=== PATIENT | male | born 1955 | race Caucasian/White ===

== ENCOUNTER 2016-07-15 13:29 | Inpatient (IN) | payer OTHER ==
[~2016-07-15] VITALS: Ht 182.9 cm; Wt 111.0 kg
[~2016-07-15 13:29] MED LIST: ADVIL,NUPRIN,M200 MG PO; ALPRAZOLAM0.5 MG PO; AMBIEN10 MG PO; AMBIEN5 MG PO; AMLODIPINE BESY10 MG PO; ANTIVERT25 MG PO; APRESOLINE100 MG PO; APRESOLINE50 MG PO; AQUAPHOR W-NAT50 GM TP; ASPIR-LOW81 MG PO; ATHLETIC FOOT C30 GM TP; Ambien PO; BACTROBAN CREAM15 GM TP; BAYER CHEWABLE81 MG PO; BISACODYL5 MG PO; Buspar PO; CATAPRES0.2 MG PO; CATAPRES0.3 MG PO; CENTRUM COMPLE1 EACH PO; CIPRO500 MG PO; CLEOCIN300 MG PO; CLINDAMYCIN HC150 MG PO; CLONAZEPAM1 MG PO; CLONIDINE HCL0.2 MG PO; CLONIDINE HCL0.3 MG PO; DISULFIRAM250 MG PO; Ecotrin PO; GABAPENTIN300 MG PO; GABAPENTIN600 MG PO; KLONOPIN1 MG PO; LIPITOR10 MG PO; LOPRESSOR100 M1 PO; Lopressor PO; METOPROLOL SUC100 MG PO; METOPROLOL TAR100 MG PO; MIRTAZAPINE15 MG PO; MIRTAZAPINE30 MG PO; MORPHINE SULFAT15 M1 PO; MOTRIN600 MG PO; NAPROSYN500 MG PO; NEURONTIN300 MG PO; NIFEDICAL XL60 MG PO; NORVASC10 MG PO; NORVASC5 MG PO; OXYCODONE HCL10 MG PO; OXYCODONE HCL5 M1 PO; OXYCODONE HCL5 MG PO; POLYETHYLENE GL17 GM PO; PRAVACHOL40 MG PO; QUETIAPINE FUM300 MG PO; ROXICODONE5 MG PO; SEROQUEL100 MG PO; SEROQUEL200 MG PO; SEROQUEL300 MG PO; SEROQUEL400 MG PO; SERTRALINE HCL100 MG PO; TOPROL XL100 MG PO; TOPROL XL6.25 MG PO; TRAZODONE HCL50 MG PO; ULTRAM50 MG PO; XANAX0.5 MG PO; XANAX1 MG PO; Xanax PO; ZOLOFT100 M1 PO; ZOLOFT100 MG PO; ZOLOFT50 MG PO; ZOLPIDEM TARTRA10 MG PO; ZOLPIDEM TARTRAT5 MG PO; metoprolol PO; oxyCODONE PO
[2016-07-15 14:18] LABS: HEMATOCRIT 40.7 % (38.0-50.0); MCH 31.4 PG (29.0-34.0); MCHC 34.2 G/DL (30.0-36.0); MCV 91.9 FL (86-99); MEAN PLAT.VOLUME 9.7 uM^3 (9.0-12.4); PLATELET COUNT 328 K/uL (156-360); RBC DIS.WIDTH-CV 13.2 % (11.8-14.6); RBC DIS.WIDTH-SD 44.7 % (39-53); RED BLOOD COUNT 4.43 M/uL (4.00-5.50); WHITE BLOOD COUNT 6.9 K/uL (4.1-10.2)
[2016-07-15 14:26] LABS: CHLORIDE 103 mEq/L (99-109); POTASSIUM 3.5 mEq/L (3.7-5.4)
[2016-07-15 14:27] LABS: SODIUM 138 mEq/L (136-147)
[2016-07-15 14:28] LABS: GLUCOSE 127 mg/dL (70-99)
[2016-07-15 14:30] LABS: ANION GAP 14 MEQ/L (2-14)
[2016-07-15 14:31] LABS: SERUM ETHYL ALCOHOL < 10 mg/dL
[2016-07-15 14:32] LABS: GFR ESTIMATE (CALCULATED) > 59 mL/min/
[2016-07-15 14:34] LABS: UREA NITROGEN (BUN) 8 mg/dL (9-23)
[2016-07-15 14:35] LABS: SALICYLATE < 5.0 MG/DL (15-30)
[2016-07-15 16:12] LABS: AMPHETAMINE NEGATIVE (500 ng/mL); BARBITURATES NEGATIVE (200 ng/mL); BENZODIAZEPINES PRESUMPTIVE POSITIVE (150 ng/mL); COCAINE NEGATIVE (150 ng/mL); INTERNAL CONTROLS VALID? YES; METHADONE NEGATIVE (200 ng/mL); METHAMPHETAMINE NEGATIVE (500 ng/mL); OPIATES (MORPHINE) NEGATIVE (100 ng/mL); OXYCODONE PRESUMPTIVE POSITIVE (100 ng/mL); PHENCYCLIDINE NEGATIVE (25 ng/mL); PROPOXYPHENE NEGATIVE (300 ng/mL); THC CANNABINOIDS NEGATIVE (50 ng/mL); TRICYCLIC ANTIDEPRESSANTS NEGATIVE (300 ng/mL)
[2016-07-15 16:13] LABS: ADD MEDTOX COMMENT Y
[2016-07-15 16:51] LABS: BENZODIAZEPINES, URINE SCREEN POSITIVE (200 ng/mL)
[2016-07-15] MEDS ORDERED: TAMSULOSIN HCL0.4 MG PO (17:05)
[2016-07-15 20:27] VITALS: BP 194/97
[2016-07-15 20:33] VITALS: BP 194/97
[2016-07-16 08:13] VITALS: BP 120/61
[2016-07-16 16:21] VITALS: BP 112/61
[2016-07-17 07:40] VITALS: BP 107/62
[2016-07-17 15:36] VITALS: BP 101/58
[2016-07-18 08:12] VITALS: BP 122/66
[2016-07-18 08:14] VITALS: BP 122/66
[2016-07-18 15:44] VITALS: BP 115/65
[2016-07-19 07:54] VITALS: BP 139/76
[2016-07-19] MEDS ORDERED: XANAX0.5 MG PO (09:36)
== END 2016-07-19 11:40 | disposition home or self-care (01) | DRG 885 ==
LOC: EME → EDBD 13:29 → EDOF 16:19 → 1WEST 16:19
PROVIDERS: Emergency Medicine
DX: F33.2 Major depressive disorder, recurrent severe without psychotic features (principal); I10 Essential (primary) hypertension; R45.851 Suicidal ideations; F41.9 Anxiety disorder, unspecified; G89.29 Other chronic pain; M54.9 Dorsalgia, unspecified; N40.0 Benign prostatic hyperplasia without lower urinary tract symptoms; F10.21 Alcohol dependence, in remission
CPT/HCPCS: 80048; 84999; 85027; 90839; 97150 GO; 97165 GO; 99281; 99285; G0480

== ENCOUNTER 2016-11-05 07:39 | Emergency (ER) | payer OTHER ==
[~2016-11-05] VITALS: Ht 182.9 cm; Wt 110.4 kg
[~2016-11-05 07:39] MED LIST changes: +TAMSULOSIN HCL0.4 MG PO
[2016-11-05 08:15] LABS: HEMATOCRIT 38.6 % (38.0-50.0); MCH 32.2 PG (29.0-34.0); MCHC 35.2 G/DL (30.0-36.0); MCV 91.3 FL (86-99); MEAN PLAT.VOLUME 10.4 uM^3 (9.0-12.4); PLATELET COUNT 288 K/uL (156-360); RBC DIS.WIDTH-SD 43.2 % (39-53); RED BLOOD COUNT 4.23 M/uL (4.00-5.50); WHITE BLOOD COUNT 5.7 K/uL (4.1-10.2)
[2016-11-05 08:31] LABS: CHLORIDE 103 mEq/L (99-109); POTASSIUM 3.1 mEq/L (3.7-5.4); SODIUM 139 mEq/L (136-147)
[2016-11-05 08:34] LABS: GLUCOSE 117 mg/dL (70-99)
[2016-11-05 08:35] LABS: ANION GAP 11 MEQ/L (2-14); TOTAL BILIRUBIN 1.1 mg/dL (0.0-1.0)
[2016-11-05 08:36] LABS: SERUM ETHYL ALCOHOL < 10 mg/dL
[2016-11-05 08:37] LABS: ALKALINE PHOSPHATASE 120 IU/L (3-129); GFR ESTIMATE (CALCULATED) > 59 mL/min/
[2016-11-05 08:38] LABS: UREA NITROGEN (BUN) 8 mg/dL (9-23)
[2016-11-05 08:40] LABS: TROP-I INTERPRETATION NEGATIVE; TROPONIN-I 0.01 ng/mL (0.0-0.30)
[2016-11-05 10:14] LABS: ADD MIUA? NO; BILIRUBIN NEGATIVE; BLOOD NEGATIVE; COLOR YELLOW ((YELLOW)); GLUCOSE (STRIP) NEGATIVE; KETONES NEGATIVE; LEUKOCYTES NEGATIVE; NITRITE NEGATIVE; PROTEIN (STRIP) NEGATIVE; SPECIFIC GRAVITY 1.011 (1.000-1.030); UCUL ADDED? NO
[2016-11-05 10:23] LABS: AMPHETAMINE NEGATIVE (500 ng/mL); BARBITURATES NEGATIVE (200 ng/mL); BENZODIAZEPINES NEGATIVE (150 ng/mL); COCAINE NEGATIVE (150 ng/mL); INTERNAL CONTROLS VALID? YES; METHADONE NEGATIVE (200 ng/mL); METHAMPHETAMINE NEGATIVE (500 ng/mL); OPIATES (MORPHINE) NEGATIVE (100 ng/mL); OXYCODONE PRESUMPTIVE POSITIVE (100 ng/mL); PHENCYCLIDINE NEGATIVE (25 ng/mL); PROPOXYPHENE NEGATIVE (300 ng/mL); THC CANNABINOIDS NEGATIVE (50 ng/mL); TRICYCLIC ANTIDEPRESSANTS PRESUMPTIVE POSITIVE (300 ng/mL)
[2016-11-05 13:49] VITALS: BP 148/82
== END 2016-11-05 14:58 ==
LOC: EME 07:39
PROVIDERS: Emergency Medicine
DX: R45.851 Suicidal ideations (principal); F33.2 Major depressive disorder, recurrent severe without psychotic features; R07.89 Other chest pain; F41.9 Anxiety disorder, unspecified; I10 Essential (primary) hypertension; E78.5 Hyperlipidemia, unspecified; Z79.82 Long term (current) use of aspirin
CPT/HCPCS: 80053; 81003; 84484; 85027; 90837; 93005; 99281; 99285; G0480

== ENCOUNTER 2017-06-24 22:56 | Inpatient (IN) | payer OTHER ==
[~2017-06-24] VITALS: Ht 182.9 cm; Wt 111.5 kg
[~2017-06-24 22:56] MED LIST changes: -OXYCODONE HCL10 MG PO
[2017-06-24 23:34] LABS: BASOPHIL (%) 0 % (0-1); EOSINOPHIL (%) 0 % (0-5); HEMATOCRIT 34.8 % (38.0-50.0); HEMOGLOBIN 12.4 G/DL (12.5-16.6); IMMATURE GRANULOCYTE (%) 0.2 % (0.0-0.7); LYMPHOCYTE (%) 13.1 % (15-42); LYMPHOCYTE COUNT 0.8 K/uL (1.0-2.8); MCH 32.5 PG (29.0-34.0); MCHC 35.6 G/DL (30.0-36.0); MCV 91.1 FL (86-99); MONOCYTE (%) 9.3 % (3-12); MONOCYTE COUNT 0.6 K/uL (0-0.8); NEUTROPHIL (%) 77.4 % (45-76); NEUTROPHIL COUNT 4.7 K/uL (1.8-6.4); PLATELET COUNT 216 K/uL (156-360); RBC DIS.WIDTH-CV 13.3 % (11.8-14.6); RBC DIS.WIDTH-SD 44.2 % (39-53); RED BLOOD COUNT 3.82 M/uL (4.00-5.50)
[2017-06-24 23:45] LABS: ALBUMIN 4.1 g/dL (3.2-4.8); CHLORIDE 102 mEq/L (99-109); POTASSIUM 4.2 mEq/L (3.7-5.4); SODIUM 136 mEq/L (136-147)
[2017-06-24 23:48] LABS: GLUCOSE 106 mg/dL (70-99)
[2017-06-24 23:50] LABS: TOTAL BILIRUBIN 1.9 mg/dL (0.0-1.0)
[2017-06-24 23:51] LABS: SERUM ETHYL ALCOHOL < 10 mg/dL
[2017-06-24 23:52] LABS: ALKALINE PHOSPHATASE 120 IU/L (3-129); CREATININE 1.2 mg/dL (0.6-1.3); GFR ESTIMATE (CALCULATED) > 59 mL/min/ (58.99-99999)
[2017-06-24 23:53] LABS: AST (GOT) 75 IU/L (2-34); UREA NITROGEN (BUN) 12 mg/dL (9-23)
[2017-06-24 23:55] LABS: ACETAMINOPHEN (TYLENOL) < 10 mcg/mL (10-30); ALT (GPT) 21 IU/L (3-49); SALICYLATE < 5.0 MG/DL (15-30)
[2017-06-24 23:56] LABS: TOTAL CK 2751 IU/L (1-294)
[2017-06-24 23:57] LABS: CREATINE KINASE 2751 IU/L (1-294)
[2017-06-25 00:02] LABS: CK-MB 17.2 ng/mL (0.0-4.9); CKMB RELATIVE INDEX 0.6 (0.0-3.9)
[2017-06-25 00:03] LABS: TROP-I INTERPRETATION NEGATIVE; TROPONIN-I 0.03 ng/mL (0.0-0.30)
[2017-06-25] MEDS ORDERED: CLONAZEPAM1 MG PO (00:33)
[2017-06-25 06:17] LABS: BASOPHIL (%) 0.2 % (0-1); EOSINOPHIL (%) 0.2 % (0-5); HEMOGLOBIN 13.2 G/DL (12.5-16.6); IMMATURE GRANULOCYTE (%) 0.4 % (0.0-0.7); LYMPHOCYTE (%) 33.1 % (15-42); LYMPHOCYTE COUNT 1.5 K/uL (1.0-2.8); MCH 32.9 PG (29.0-34.0); MCHC 35.7 G/DL (30.0-36.0); MCV 92.3 FL (86-99); MONOCYTE (%) 13.5 % (3-12); MONOCYTE COUNT 0.6 K/uL (0-0.8); NEUTROPHIL (%) 52.6 % (45-76); NEUTROPHIL COUNT 2.4 K/uL (1.8-6.4); RBC DIS.WIDTH-CV 13.4 % (11.8-14.6); RBC DIS.WIDTH-SD 45.8 % (39-53); RED BLOOD COUNT 4.01 M/uL (4.00-5.50); WHITE BLOOD COUNT 4.7 K/uL (4.1-10.2)
[2017-06-25 06:53] LABS: CHLORIDE 106 MEQ/L (99-109); GFR ESTIMATE (CALCULATED) > 59 mL/min/ (58.99-99999); GLUCOSE 86 mg/dL (70-99); POTASSIUM 4.8 MEQ/L (3.7-5.4); SODIUM 137 MEQ/L (136-147); UREA NITROGEN (BUN) 11 mg/dL (9-23)
[2017-06-25 06:54] LABS: APPEARANCE CLEAR ((CLEAR)); BILIRUBIN NEGATIVE; BLOOD NEGATIVE; COLOR YELLOW ((YELLOW)); GLUCOSE (STRIP) NEGATIVE; KETONES 20; LEUKOCYTES NEGATIVE; NITRITE NEGATIVE; PROTEIN (STRIP) NEGATIVE; SPECIFIC GRAVITY 1.013 (1.000-1.030); UCUL ADDED? NO; UROBILINOGEN 0.2 MG/DL (0.2-1.0)
[2017-06-25 06:58] LABS: CREATINE KINASE 2417 IU/L (1-294)
[2017-06-25 07:00] LABS: PLAT.SUFFICIENCY ADEQUATE; PLATELET COUNT 164 K/uL (156-360)
[2017-06-25 07:02] LABS: AMPHETAMINE NEGATIVE (500 ng/mL); BENZODIAZEPINES NEGATIVE (150 ng/mL); COCAINE NEGATIVE (150 ng/mL); METHADONE NEGATIVE (200 ng/mL); METHAMPHETAMINE NEGATIVE (500 ng/mL); OPIATES (MORPHINE) PRESUMPTIVE POSITIVE (100 ng/mL); PHENCYCLIDINE NEGATIVE (25 ng/mL); THC CANNABINOIDS NEGATIVE (50 ng/mL); TRICYCLIC ANTIDEPRESSANTS PRESUMPTIVE POSITIVE (300 ng/mL)
[2017-06-25 07:03] LABS: BARBITURATES NEGATIVE (200 ng/mL); BUPRENORPHINE NEGATIVE (10 ng/mL); OXYCODONE PRESUMPTIVE POSITIVE (100 ng/mL); PROPOXYPHENE NEGATIVE (300 ng/mL)
[2017-06-25 08:36] LABS: THYROTROPIN (TSH) 0.64 MIU/L (0.4-5.5)
[2017-06-25 08:46] LABS: FOLIC ACID (FOLATE) 10.1 NG/ML (5.0-22.0)
[2017-06-25 13:00] VITALS: BP 158/78
[2017-06-25 16:31] VITALS: BP 148/74
[2017-06-25 20:52] VITALS: BP 153/80
[2017-06-25 23:33] VITALS: BP 147/78
[2017-06-26 03:34] VITALS: BP 152/79
[2017-06-26 06:08] LABS: HEMATOCRIT 38.3 % (38.0-50.0); HEMOGLOBIN 13.2 G/DL (12.5-16.6); MCH 32.4 PG (29.0-34.0); MCHC 34.5 G/DL (30.0-36.0); MCV 93.9 FL (86-99); RBC DIS.WIDTH-CV 13.6 % (11.8-14.6); RBC DIS.WIDTH-SD 46.8 % (39-53); RED BLOOD COUNT 4.08 M/uL (4.00-5.50); WHITE BLOOD COUNT 5.7 K/uL (4.1-10.2)
[2017-06-26 06:10] LABS: PLATELET COUNT 229 K/uL (156-360)
[2017-06-26 06:38] LABS: CHLORIDE 108 MEQ/L (99-109); CREATININE 0.9 MG/DL (0.6-1.3); GFR ESTIMATE (CALCULATED) > 59 mL/min/ (58.99-99999); GLUCOSE 99 mg/dL (70-99); SODIUM 142 MEQ/L (136-147); UREA NITROGEN (BUN) 5 mg/dL (9-23)
[2017-06-26 06:41] LABS: POTASSIUM 3.4 MEQ/L (3.7-5.4)
[2017-06-26 08:00] VITALS: BP 163/79
[2017-06-26 08:39] LABS: CREATINE KINASE 1360 IU/L (1-294); MAGNESIUM 1.8 mg/dl (1.3-2.7)
[2017-06-26 11:51] VITALS: BP 157/81
[2017-06-26 15:37] VITALS: BP 135/73
[2017-06-26 19:30] VITALS: BP 129/79
[2017-06-27] VITALS: BP 106/56
[2017-06-27 03:36] VITALS: BP 130/66
[2017-06-27 06:10] LABS: HEMATOCRIT 33.8 % (38.0-50.0); HEMOGLOBIN 11.5 G/DL (12.5-16.6); MCH 31.6 PG (29.0-34.0); MCV 92.9 FL (86-99); PLATELET COUNT 228 K/uL (156-360); RBC DIS.WIDTH-CV 13.5 % (11.8-14.6); RBC DIS.WIDTH-SD 46.4 % (39-53); RED BLOOD COUNT 3.64 M/uL (4.00-5.50); WHITE BLOOD COUNT 5.3 K/uL (4.1-10.2)
[2017-06-27 07:11] VITALS: BP 132/76
[2017-06-27 07:20] LABS: CHLORIDE 111 MEQ/L (99-109); CREATINE KINASE 549 IU/L (1-294); CREATININE 0.9 MG/DL (0.6-1.3); GFR ESTIMATE (CALCULATED) > 59 mL/min/ (58.99-99999); GLUCOSE 96 mg/dL (70-99); POTASSIUM 3.5 MEQ/L (3.7-5.4); SODIUM 145 MEQ/L (136-147); TOTAL CK 549 IU/L (1-294); UREA NITROGEN (BUN) 5 mg/dL (9-23)
[2017-06-27 07:42] LABS: CK-MB 1.3 ng/mL (0.0-4.9); CKMB RELATIVE INDEX 0.2 (0.0-3.9)
[2017-06-27 12:21] VITALS: BP 130/71
[2017-06-27] MEDS ORDERED: AMBIEN10 MG PO (12:48)
== END 2017-06-27 14:18 | disposition home or self-care (01) | DRG 917 ==
LOC: EME → EDBD 22:56 → EDOF 06-25 02:40 → ENRESERV 06-25 02:42 → 5WEST 06-25 12:30 → ENPENDDIS 06-27 → 5WEST 06-27 14:18
PROVIDERS: Emergency Medicine; Internal Medicine; Physician Assistant
DX: T40.2X1A Poisoning by other opioids, accidental (unintentional), initial encounter (principal); G92 Toxic encephalopathy; T79.6XXA Traumatic ischemia of muscle, initial encounter; I10 Essential (primary) hypertension; E78.5 Hyperlipidemia, unspecified; N40.0 Benign prostatic hyperplasia without lower urinary tract symptoms; G89.29 Other chronic pain; F32.9 Major depressive disorder, single episode, unspecified; F41.9 Anxiety disorder, unspecified; I95.9 Hypotension, unspecified; E87.6 Hypokalemia
CPT/HCPCS: 70450; 70551; 71046; 71250; 80048; 80053; 81003; 82140; 82550; 82553; 82607; 82746; 83735; 84443; 84484; 84999; 85025; 85027; 93005; 99281; 99285; G0378; G0480; J1644; J2405; J7030

== ENCOUNTER 2017-08-13 16:35 | Emergency (ER) | payer OTHER ==
[~2017-08-13] VITALS: Ht 182.9 cm; Wt 107.5 kg
[2017-08-13] MEDS ORDERED: DOXYCYCLINE HY100 MG PO (19:42)
[2017-08-13] MEDS ORDERED: PERCOCET 10/1 TABLET PO (19:42)
[2017-08-13] MEDS ORDERED: TORADOL10 MG PO (19:42)
[2017-08-13 20:07] VITALS: BP 142/80
== END 2017-08-13 20:31 | disposition home or self-care (01) ==
LOC: EME 16:35
DX: S20.211A Contusion of right front wall of thorax, initial encounter (principal); R09.89 Other specified symptoms and signs involving the circulatory and respiratory systems; W18.2XXA Fall in (into) shower or empty bathtub, initial encounter; Y93.E1 Activity, personal bathing and showering; Z79.82 Long term (current) use of aspirin; E78.5 Hyperlipidemia, unspecified; Z86.73 Personal history of transient ischemic attack (TIA), and cerebral infarction without residual deficits; F41.9 Anxiety disorder, unspecified; Z88.0 Allergy status to penicillin; Z88.8 Allergy status to other drugs, medicaments and biological substances
CPT/HCPCS: 71046; 99281; 99284; J1885

== ENCOUNTER 2017-08-27 12:41 | Emergency (ER) | payer OTHER ==
[~2017-08-27] VITALS: Ht 182.9 cm; Wt 108.0 kg
[~2017-08-27 12:41] MED LIST changes: +DOXYCYCLINE HY100 MG PO; +PERCOCET 10/1 TABLET PO; +TORADOL10 MG PO
[2017-08-27] MEDS ORDERED: LIDODERM 5% P1 PATCH TD (15:00)
[2017-08-27] MEDS ORDERED: ULTRAM50 MG PO (15:00)
[2017-08-27 15:26] VITALS: BP 154/89
== END 2017-08-27 15:27 | disposition home or self-care (01) ==
LOC: EME 12:41
DX: S30.0XXA Contusion of lower back and pelvis, initial encounter (principal); R07.81 Pleurodynia; W18.2XXA Fall in (into) shower or empty bathtub, initial encounter; R06.02 Shortness of breath; I10 Essential (primary) hypertension; Z79.82 Long term (current) use of aspirin
CPT/HCPCS: 72100; 99281; 99284

== ENCOUNTER 2017-10-21 23:32 | Emergency (ER) | payer OTHER ==
[~2017-10-21] VITALS: Ht 182.9 cm; Wt 98.9 kg
[~2017-10-21 23:32] MED LIST changes: +LIDODERM 5% P1 PATCH TD
[2017-10-21 23:53] LABS: HEMATOCRIT 35.6 % (38.0-50.0); MCH 33.2 PG (29.0-34.0); MCHC 36.5 G/DL (30.0-36.0); MCV 90.8 FL (86-99); PLATELET COUNT 273 K/uL (156-360); RBC DIS.WIDTH-CV 13.2 % (11.8-14.6); RBC DIS.WIDTH-SD 44.6 % (39-53); RED BLOOD COUNT 3.92 M/uL (4.00-5.50); WHITE BLOOD COUNT 7.5 K/uL (4.1-10.2)
[2017-10-22 00:05] LABS: CHLORIDE 97 mEq/L (99-109); POTASSIUM 3.2 mEq/L (3.7-5.4); SODIUM 137 mEq/L (136-147)
[2017-10-22 00:07] LABS: GLUCOSE 114 mg/dL (70-99)
[2017-10-22 00:11] LABS: CREATININE 1.1 mg/dL (0.6-1.3); GFR ESTIMATE (CALCULATED) > 59 mL/min/ (58.99-99999); TROP-I INTERPRETATION NEGATIVE; TROPONIN-I 0.04 ng/mL (0.0-0.30)
[2017-10-22 00:12] LABS: UREA NITROGEN (BUN) 4 mg/dL (9-23)
[2017-10-22 03:22] LABS: TROP-I INTERPRETATION NEGATIVE; TROPONIN-I 0.04 ng/mL (0.0-0.30)
[2017-10-22 04:59] VITALS: BP 171/88
== END 2017-10-22 05:13 | disposition home or self-care (01) ==
LOC: EME → EDBD 23:32 → EME 10-22 05:13
PROVIDERS: Emergency Medicine
DX: R07.89 Other chest pain (principal); I10 Essential (primary) hypertension; E78.5 Hyperlipidemia, unspecified; R56.9 Unspecified convulsions; Z86.73 Personal history of transient ischemic attack (TIA), and cerebral infarction without residual deficits; Z87.19 Personal history of other diseases of the digestive system; Z85.9 Personal history of malignant neoplasm, unspecified; Z90.49 Acquired absence of other specified parts of digestive tract; Z88.0 Allergy status to penicillin; Z88.8 Allergy status to other drugs, medicaments and biological substances
CPT/HCPCS: 71046; 71275; 80048; 84484; 85027; 93005; 99281; 99285; J7030